=== PATIENT | female | born 2000 | race Caucasian/White ===

== ENCOUNTER 2018-02-28 14:55 | Emergency (ER) | payer OTHER | END 2018-02-28 15:30 | disposition home or self-care (01) | LOC: E/R 14:55 | DX: L50.9 Urticaria, unspecified (principal) | CPT/HCPCS: 99283; Z7502 ==

== ENCOUNTER 2018-05-02 19:29 | Emergency (ER) | payer OTHER ==
[2018-05-02] MEDS: ONDANSETRON (ODT) 4 MG TAB ODT (20:47)
[2018-05-02] MEDS: DIPHENHYDRAMINE 25 MG CAP PO (20:47)
[2018-05-02] MEDS: DEXAMETHASONE 10 MG/ML 1 ML INJ PO (20:48)
[2018-05-02] MEDS: FAMOTIDINE 20 MG TAB PO (20:48)
== END 2018-05-02 21:16 | disposition home or self-care (01) ==
LOC: FTE 21:16
DX: R11.10 Vomiting, unspecified (principal); R19.7 Diarrhea, unspecified
CPT/HCPCS: 99284; J1100

== ENCOUNTER 2018-06-22 20:14 | Emergency (ER) | payer SELFPAY, OTHER | END 2018-06-23 00:18 | disposition home or self-care (01) | LOC: FTE 06-23 00:18 | DX: R22.0 Localized swelling, mass and lump, head (principal) | CPT/HCPCS: 99283 ==

== ENCOUNTER 2019-03-07 08:39 | Emergency (ER) | payer BC, OTHER | END 2019-03-07 10:23 | disposition home or self-care (01) | LOC: FTE 08:39 | DX: R21 Rash and other nonspecific skin eruption (principal); J02.9 Acute pharyngitis, unspecified | CPT/HCPCS: 87880; 99283 ==